=== PATIENT | male | born 1990 | race Caucasian/White ===

== ENCOUNTER 2021-03-26 21:59 | Emergency (ER) | payer MEDICAID ==
[~2021-03-26] VITALS: Ht 162.6 cm; Wt 75.7 kg
[2021-03-26 22:00] VITALS: BP 144/93
--- NOTE | 2021-03-26 22:00 | NUR ---
BIBA TAKEN TO BED #7
--- NOTE | 2021-03-26 22:37 | NUR ---
21 YO/M BIBA W CO OF THE ROOM AND LIGHTS SPINNING S/P INJESTION OF HALODOL. 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 PATIENT DENIES ANY ASSAULTS, OR HARM CAUSED TO HIM. DENIES ANY CURRENT PAIN. PATIENT A0X4 GCS 15. BREATHING EVEN AND UNLABORED. PATIENT SITTING IN BED LOCKED IN LOWEST POSITION, X1 SIDERAIL UP. WILL CONTINUE TO MONITOR. PMH:HTN, SCHIZO ALLERGIES: SPICY FOODS
[2021-03-26 23:21] VITALS: BP 144/93
--- NOTE | 2021-03-26 23:21 | NUR ---
PATIENT LEFT W/O BEING SEEN BY ERMD. ERMD MADE AWARE.
[2021-03-26 23:32] LABS: BARBITURATE, URINE NEGATIVE ng/ml (NEG <=200); BENZODIAZEPINE, URINE NEGATIVE ng/mL (NEG <=200); CANNABINOID, URINE NEGATIVE ng/mL (NEG <=50); COCAINE, URINE NEGATIVE ng/mL (NEG <=300); OPIATE, URINE NEGATIVE ng/mL (NEG <=2000); PHENCYCLIDINE SCREEN,URINE NEGATIVE ng/mL (NEG <=25)
== END 2021-03-26 23:21 | disposition left against medical advice (07) ==
LOC: EDBD → MED 21:59
DX: Z53.21 Procedure and treatment not carried out due to patient leaving prior to being seen by health care provider (principal); H53.9 Unspecified visual disturbance
CPT/HCPCS: 80305

== ENCOUNTER 2021-03-27 06:21 | Emergency (ER) | payer MEDICAID ==
[~2021-03-27] VITALS: Ht 162.6 cm; Wt 75.7 kg
[2021-03-27 06:25] VITALS: BP 123/78
--- NOTE | 2021-03-27 06:25 | NUR ---
to bed ambulatory
--- NOTE | 2021-03-27 06:40 | NUR ---
AMBULATED TO WITH STEADY GAIT.
--- NOTE | 2021-03-27 06:42 | NUR ---
PT UNABLE TO GIVE URINE AT THIS TIME. GAVE WATER TO ENCOURAGE URINATION.
--- NOTE | 2021-03-27 06:57 | NUR ---
31 YO M BIB SELF WITH C/C OF SHARP TESTICULAR PAIN 9.5/10 X4DAYS. PT STATED HE WOKE UP ONE DAY AND HIS TESTICLES WERE SMALLER AND IS CONCERNED. PT DID NOT ALLOW ERMD TO EXAMINE HIM. PT STATED HE FEELS HIS BP IS HIGH. ERMD REVIEWED VS BEING IN NORMAL RANGE. PT ALSO STATED HE IS WORRIED TO GO WHERE HE SLEEPS, A WORK PLACE, BECAUSE OF THE PEOPLE THERE. HX: SCHIZO RX: INJ FOR SCHIZO NKA
--- NOTE | 2021-03-27 07:03 | NUR ---
ASSUMED CARE OF PT FROM URIEL GRULLON. ALL CARE TRANSFERRED.
--- NOTE | 2021-03-27 07:04 | NUR ---
REPORT GIVEN TO URIEL GREEN. TRANSFER OF CARE AT THIS TIME.
--- NOTE | 2021-03-27 07:17 | NUR ---
Patient does not wish to proceed with medical care recommended by DR RENTERIA. Patient given information related to possible complications, up to and including , which could occur as a result of leaving hospital at this time. Patient verbalizes understanding of risks involved leaving against medical advice. Patient has signed AMA form. BUS PASS PROVIDED.
[2021-03-27 07:20] VITALS: BP 123/78
== END 2021-03-27 07:17 | disposition left against medical advice (07) ==
LOC: MED 06:21
DX: N50.819 Testicular pain, unspecified (principal); F17.200 Nicotine dependence, unspecified, uncomplicated
CPT/HCPCS: 99281